=== PATIENT | female | born 1955 | race Caucasian/White ===

== ENCOUNTER → 2017-01-29 | Outpatient (CLI) | payer BC ==
[~2017-01-29] MED LIST: METHACHOLINE CHLORIDE 100MG/VIAL IH ONE; RT-ALBUTEROL SULF 2.5 MG/3 ML PRE-MIX VIAL IH ONE; RT-SODIUM CHL INHALATION 3 ML VIAL ONE
== END ==
LOC: RT 10:07
DX: R05 Cough (principal)
CPT/HCPCS: 94070; 94640; 95070